=== PATIENT | female | born 1955 | race Hispanic/Latino ===

== ENCOUNTER → 2021-09-08 | Outpatient (CLI) | payer OTHER | END | disposition home or self-care (01) | LOC: RAH 07:53 | PROVIDERS: ATTEND Family Medicine | DX: Z12.31 Encounter for screening mammogram for malignant neoplasm of breast (principal) | CPT/HCPCS: 77067 ==

== ENCOUNTER → 2021-09-18 | Outpatient (CLI) | payer OTHER | END | disposition home or self-care (01) | LOC: RAH 08:23 | PROVIDERS: ATTEND Family Medicine | DX: N63.11 Unspecified lump in the right breast, upper outer quadrant (principal); R92.8 Other abnormal and inconclusive findings on diagnostic imaging of breast | CPT/HCPCS: 76641; 77065 ==

== ENCOUNTER 2022-04-05 08:20 | Emergency (ER) | payer OTHER ==
[~2022-04-05] VITALS: Ht 157.5 cm; Wt 83.5 kg
[~2022-04-05 08:20] MED LIST: ASPI-1005 PO; ATOR40TA69 PO; CLON0.1T2 PO; HYDR12.54 PO; LOSA100T58 PO; METF-444 PO; METO25TA3 PO; TICA90TA PO
[2022-04-05 09:56] VITALS: BP 120/59
[2022-04-05] MEDS ORDERED: NAPR-1196 PO (10:58)
== END 2022-04-05 12:01 | disposition home or self-care (01) ==
LOC: EDH 08:20
DX: S86.912A Strain of unspecified muscle(s) and tendon(s) at lower leg level, left leg, initial encounter (principal); M94.0 Chondrocostal junction syndrome [Tietze]; E11.9 Type 2 diabetes mellitus without complications; I10 Essential (primary) hypertension; I25.2 Old myocardial infarction; Z86.73 Personal history of transient ischemic attack (TIA), and cerebral infarction without residual deficits; W19.XXXA Unspecified fall, initial encounter; Y93.89 Activity, other specified; Y92.89 Other specified places as the place of occurrence of the external cause; Y99.8 Other external cause status
CPT/HCPCS: 71101; 73562; 93005

== ENCOUNTER 2023-07-22 15:06 | Emergency (ER) | payer OTHER ==
[~2023-07-22] VITALS: Ht 152.4 cm; Wt 83.9 kg
[~2023-07-22 15:06] MED LIST changes: -LOSA100T58 PO; +LOSA100T59 PO; +NAPR-1196 PO
[2023-07-22 18:35] LABS: BASOPHILS # (AUTO) 0.03 K/uL (0.00-0.20); BASOPHILS % (AUTO) 0.4 % (0.0-5.0); EOSINOPHILS # (AUTO) 0.14 K/uL (0.00-0.70); EOSINOPHILS % (AUTO) 1.9 % (0.0-8.0); HEMATOCRIT 39.5 % (36-48); IMMATURE GRANULOCYTE ABSOLUTE 0.02 K/uL (0-1); LYMPHOCYTES # (AUTO) 1.8 K/uL (1.0-4.8); LYMPHOCYTES % (AUTO) 24.7 % (21.0-51.0); MEAN CORPUSCULAR HEMOGLOBIN 29.7 pg (27.0-33.0); MEAN CORPUSCULAR HGB CONC 33.2 g/dL (32.0-36.0); MEAN CORPUSCULAR VOLUME 89.6 fL (79-99); MONOCYTES # (AUTO) 0.6 K/uL (0.1-1.0); MONOCYTES % (AUTO) 7.7 % (3.0-13.0); NEUTROPHILS # (AUTO) 4.8 K/uL (1.8-7.7); PLATELET COUNT (AUTO) 158 K/uL (130-400); RED BLOOD CELL COUNT(AUTO) 4.41 MIL/uL (4.00-5.50); RED CELL DISTRIBUTION WIDTH 13.8 % (11.0-15.5); WHITE BLOOD COUNT (AUTO) 7.4 K/uL (4.8-10.8)
[2023-07-22 18:48] LABS: CREATININE 1.3 mg/dL (0.5-1.0); POTASSIUM 4.6 mmol/L (3.5-5.1)
[2023-07-22 18:53] LABS: ALBUMIN 3.6 g/dL (3.5-5.0); BILIRUBIN,TOTAL 0.4 mg/dL (0.2-1.0); TOTAL PROTEIN, SERUM 7.9 g/dL (6.0-8.3)
[2023-07-22] MEDS ORDERED: CYCL-309 PO (19:20)
[2023-07-22 19:37] VITALS: BP 148/71; PULSE 65; RESP 16; O2SAT 100
== END 2023-07-22 19:41 | disposition home or self-care (01) ==
LOC: EDH 15:06
DX: R25.2 Cramp and spasm (principal); I83.92 Asymptomatic varicose veins of left lower extremity; I25.10 Atherosclerotic heart disease of native coronary artery without angina pectoris; E11.9 Type 2 diabetes mellitus without complications; E78.00 Pure hypercholesterolemia, unspecified; I10 Essential (primary) hypertension; Z79.02 Long term (current) use of antithrombotics/antiplatelets; Z79.82 Long term (current) use of aspirin; Z79.84 Long term (current) use of oral hypoglycemic drugs; Z79.899 Other long term (current) drug therapy; Z95.5 Presence of coronary angioplasty implant and graft
CPT/HCPCS: 36415; 80053; 85025; 93971

== ENCOUNTER → 2023-09-26 | Outpatient (CLI) | payer OTHER ==
[~2023-09-26] MED LIST changes: +CYCL-309 PO
== END | disposition home or self-care (01) ==
LOC: RAH 09:51
PROVIDERS: ATTEND Family Medicine
DX: Z12.31 Encounter for screening mammogram for malignant neoplasm of breast (principal); N63.11 Unspecified lump in the right breast, upper outer quadrant; R92.30 Dense breasts, unspecified
CPT/HCPCS: 77067

== ENCOUNTER 2024-07-08 13:01 | Emergency (ER) | payer OTHER ==
[~2024-07-08] VITALS: Ht 154.9 cm
--- NOTE | 2024-07-08 13:34 | ERN ---
ED Note History of Present Illness Stated Complaint: PAIN ON RIGHT ARM Chief Complaint: Shoulder Injury/Pain Time Seen by MD: 13:02 Dictation: PATIENT IS A 68-YEAR-OLD FEMALE WITH NON TRAUMA RIGHT SHOULDER PAIN THAT RADIATES DOWN HER ARM ONSET WAS TWO DAYS PRIOR TO ARRIVAL. SHE STATES SHE HAS BEEN WORKING EXCESSIVELY WITH THE SHOULDER AND HAS HAD THIS PAIN SIMILAR IN THE PAST. SHE STATES SHE HAD IT THE SAME PLACE DURING , WAS SEEN BY HER DOCTOR AND TOLD IT WAS BECAUSE OF REPETITIVE MOTION. SHE DENIES ANY TRAUMA OR FALLS. Allergies: Coded Allergies: No Known Drug Allergies (Unverified Allergy, Unknown, 01/21/22) Home Meds Active Scripts Omeprazole (Omeprazole) 40 Mg Capsule.dr, 1 CAP PO DAILY for 30 Days, #30 CAP 0 Refills Prov:LIZETT PENNINGTON NP 07/08/24 Ibuprofen (Ibuprofen 800 mg Tab) 800 Mg Tab, 800 MG PO Q8H PRN for fever or pain, #30 TAB 0 Refills Prov:LIZETT PENNINGTON NP 07/08/24 Prednisone (Prednisone) 20 Mg Tablet, 1 TAB PO AD for 6 Days, #14 TAB 0 Refills TAKE 1 TAB BY MOUTH THREE TIMES PER DAY X3 DAYS, THEN TAKE 1 TAB BY MOUTH TWICE A DAY X2 DAYS, THEN TAKE 1 TAB BY MOUTH ONCE A DAY X1 DAY. Take with food Prov:LIZETT PENNINGTON NP 07/08/24 Cyclobenzaprine HCl (Cyclobenzaprine HCl) 10 Mg Tablet, 10 MG PO TIDP for LEG CRAMPS, #30 TAB Prov:LIZETT PENNINGTON NP 07/22/23 Naproxen (Naproxen) 250 Mg Tablet, 250 MG PO BID for 7 Days, #14 TAB Prov:NARAYAN BLANCO MD 04/05/22 Hydrochlorothiazide (Hydrochlorothiazide) 12.5 Mg Tablet, 12.5 MG PO DAILY for 30 Days, #30 TAB Prov:LEISA RUIZ 01/23/22 Ticagrelor (Brilinta) 90 Mg Tablet, 90 MG PO BID for 30 Days, #60 TAB 0 Refills Prov:LEISA RUIZ 01/23/22 Metoprolol Succinate (Toprol Xl) 25 Mg Tab.er.24h, 25 MG PO DAILY for 30 Days, #30 TAB 0 Refills Prov:LEISA RUIZ 01/23/22 Clonidine HCl (Catapress) 0.1 Mg Tab, 0.1 MG PO Q6H PRN for IF SBP GREATER THAN 160 for 10 Days, #30 TAB 0 Refills Prov:LEISA RUIZ 01/23/22 Aspirin (ASPIRIN 81MG CHEW TAB) 81 Mg Tab.chew, 81 MG PO DAILY for 30 Days, #30 TAB.CHEW 0 Refills Prov:LEISA RUIZ 01/23/22 Atorvastatin Calcium (LIPITOR) 40 Mg Tablet, 40 MG PO HS for 30 Days, #30 TAB 0 Refills Prov:LEISA RUIZ 01/23/22 Reported Medications Metformin HCl (Metformin HCl) 500 Mg Tablet, 500 MG PO BID for DIABETES, TAB 01/22/22 Losartan Potassium (Losartan Potassium) 100 Mg Tablet, 100 MG PO DAILY for HYPERTENSION, TAB 01/22/22 Past Medical History Past Medical History: CAD, Diabetes-Type II, High Cholesterol, Hypertension, [place] Additional Past Medical Hx: LEFT ARM FRACTURE Surgical History: Other Surgical History Other: HEART STENTS BY DR RICE 01/22/22 History: Not Applicable RN Note Reviewed/Agreed w/PFSH: Yes Review of System Dictation CONSTITUTIONAL: NEGATIVE EXCEPT FOR HPI HEAD/FACE: NEGATIVE EXCEPT FOR HPI EENT: NEGATIVE EXCEPT FOR HPI RESPIRATORY: NEGATIVE EXCEPT FOR HPI GASTROINTESTINAL/ABDOMINAL: NEGATIVE EXCEPT FOR HPI GENITOURINARY: NEGATIVE EXCEPT FOR HPI MUSCULOSKELETAL: NEGATIVE EXCEPT FOR HPI RIGHT SHOULDER PAIN DECREASED ROM INTEGUMENTARY: NEGATIVE EXCEPT FOR HPI NEUROLOGICAL/PSYCH: NEGATIVE EXCEPT FOR HPI HEMATOLOGIC/LYMPHATIC: NEGATIVE EXCEPT FOR HPI ALL SYSTEMS NEGATIVE, EXCEPT NOTED ABOVE. 13 POINT REVIEW OF SYSTEMS ASSESSED AND ALL NEGATIVE EXCEPT FOR ABOVE. Initial Vital Sign VS Vital Signs Date Time Temp Pulse Resp B/P (MAP) Pulse Ox O2 Delivery O2 Flow Rate FiO2 07/08/24 13:32 97.5 65 18 150/64 100 Room Air 0 07/08/24 14:38 21 Physical Exam Dictation VITAL SIGNS REVIEWED GENERAL APPEARANCE: ALERT, ORIENTED X 3, MONITOR ACUTE DISTRESS, WELL DEVELOPED, NOURISHED. HEAD AND FACE: NON-TRAUMATIC. EYES: PERRL, PINK CONJUNCTIVAS, EYELID NO TRAUMA, ANTERIOR CHAMBER WITH ARCUS SENILIS. EARS: PINNAS INTACT AND NO SIGNS OF TRAUMA OR ERYTHEMA EAR CANALS CLEAR AND NO DISCHARGE TM NO ERYTHEMA NOSE: NO DISCHARGE, NO BLEEDING. OROPHARYNX: MOUTH NORMAL, TONGUE PINK, PHARYNX CLEAR,NO ERYTHEMA, TONSILS NO EXUDATES, NO ABSCESSES NOTED, MUCOUS MEMBRANE MOIST NECK: SUPPLE, NON-TENDER, NO THYROMEGALY, NO MASSES, NO JVD, NO BRUITS BREAST:DEFERRED CHEST:NO TENDERNESS, NO CREPITUS, NO PARADOXICAL MOVEMENT, NO RETRACTIONS LUNGS:CLEAR, WELL-VENTILATED, SYMMETRIC, NO RALES, NO WHEEZING, NO RHONCHI, NO STRIDOR, GOOD BREATH SOUNDS BILATERALLY HEART: REGULAR RATE, REGULAR RHYTHM, NO MURMUR, NO GALLOPS VASCULAR: NO PERIPHERAL EDEMA, ABDOMEN: SOFT, POSITIVE BOWEL SOUNDS, NONDISTENDED, NO GUARDING, NONTENDER, NO REBOUND, NO MASSES NO HEPATOMEGALY, NO SPLENOMEGALY, NO HERRERA'S SIGN, NO HERNIAS. RECTAL: DEFERRED GENITAL: DEFERRED NEUROLOGICAL: NORMAL SPEECH, MOTOR FUNCTION INTACT, SENSORY FUNCTION INTACT MUSCULOSKELETAL DIFFUSE RIGHT SHOULDER TENDERNESS MORE ANTERIOR, DECREASED ROM SECONDARY TO PAIN. DISTAL NEUROVASCULAR CMS INTACT SKIN: COLOR PINK, DRY, NO TURGOR, NO RASH, NO LACERATIONS, NO ABRASIONS, NO CONTUSIONS. LYMPHATIC: DEFERRED Results (Laboratory/Radiology) Laboratory/Radiology Comparison: None FINDINGS: The acromioclavicular joint shows hypertrophy, which may impinge upon the rotator cuff tendon. The glenohumeral joint is preserved. Visualized portions of the humerus, the scapula, and the clavicle as well as the upper ribcage are unremarkable. No pulmonary pathology is noted in the visualized portions of the upper lobe. The soft tissues are preserved. There are no other gross abnormalities. IMPRESSION: Degenerative changes of the acromioclavicular joint with hypertrophy. Labs Reviewed?: Yes ED Course ED Course Orders Procedure Category Date Status Time Ketorolac 60mg/2ml PHA 07/08/24 Complete (Toradol 60mg/2ml) 14:00 Dexamethasone 4mg/Ml PHA 07/08/24 Complete 1ml Vial (Dexametha 14:00 Shoulder Comp 2+Vws Rt RAD 07/08/24 Resulted 13:31 Cyclobenzaprine Hcl PHA 07/08/24 Complete (Cyclobenzaprine Hcl 14:00 Current Medications Medications (Trade) Dose Ordered Sig/Nirav Route PRN Reason Start Time Stop Time Status Last Admin Dose Admin Cyclobenzaprine HCl (Cyclobenzaprine HCl) 10 mg ONCE ONCE PO 07/08/24 14:00 07/08/24 14:01 DC 07/08/24 14:31 Dexamethasone Sodium Phosphate (dexaMETHasone 4MG/ML 1ML VIAL) 8 mg ONCE ONCE IM 07/08/24 14:00 07/08/24 14:01 DC 07/08/24 14:32 Ketorolac Tromethamine (toRADol 60MG/ 2ML) 60 mg ONCE ONCE IM 07/08/24 14:00 07/08/24 14:01 DC 07/08/24 14:32 Vital Signs Date Time Temp Pulse Resp B/P (MAP) Pulse Ox O2 Delivery O2 Flow Rate FiO2 07/08/24 15:22 98.1 72 20 132/48 98 Room Air* 0 21 07/08/24 14:38 98.4 74 20 131/44 98 Room Air* 0 21 07/08/24 13:32 97.5 65 18 150/64 100 Room Air 0 1532/patient states pain improved after treatment with ketorolac and Decadron. Discharged home with prednisone Told no work until cleared by her doctor or orthopedic surgeon. Medical Decision Making MDM Medical decision-making based on empiric treatment for acute shoulder pain. X-ray demonstrates degenerative changes consistent with osteoarthritis Discharged home with prednisone Told to see her primary care doctor Tuesday or Tuesday without fail for follow up and manage Or follow up with Dr. Lara Alvarez in the next 1-2 days. DX & DISP Disposition: Discharge Departure Impression: Primary Impression: Acute pain of right shoulder Additional Impression: DJD of right shoulder Condition: Stable Scripts Omeprazole (Omeprazole) 40 Mg Capsule.dr 1 CAP PO DAILY for 30 Days, #30 CAP 0 Refills Prov: LIZETT PENNINGTON NP 07/08/24 Ibuprofen (Ibuprofen 800 mg Tab) 800 Mg Tab 800 MG PO Q8H PRN for fever or pain, #30 TAB 0 Refills Prov: LIZETT PENNINGTON NP 07/08/24 Prednisone (Prednisone) 20 Mg Tablet 1 TAB PO AD for 6 Days, #14 TAB 0 Refills TAKE 1 TAB BY MOUTH THREE TIMES PER DAY X3 DAYS, THEN TAKE 1 TAB BY MOUTH TWICE A DAY X2 DAYS, THEN TAKE 1 TAB BY MOUTH ONCE A DAY X1 DAY. Take with food Prov: LIZETT PENNINGTON NP 07/08/24 Referrals: LARA SAXENA MD (PCP) LARA ALVAREZ MD Time of Disposition: 15:33 I have reviewed the case, and I agree with, Diagnosis and Plan I performed the substantive portion of the visit. I have reviewed and personally made and approve the management plan that is documented in the notes by myself or the ANA. I acknowledge full responsibility for the patient's management plan. LIZETT PENNINGTON NP Jul 08, 2024 13:34 ARNOLD SOSA MD Jul 08, 2024 19:18
[2024-07-08] MEDS: CYCLOBENZAPRINE HCL 10 MG TABLET PO ONE (14:31)
[2024-07-08] MEDS: dexaMETHasone SOD PHOSPHATE 4 MG/ML 1ML VIAL IM ONE (14:32)
[2024-07-08] MEDS: ketOROlac 60 MG VIAL (30MG/ML) IM ONE (14:32)
--- NOTE | 2024-07-08 14:42 | HMCIMG ---
Exam Type: SHOULDER COMP 2+VWS RT Clinical Information: NON TRAUMA RIGHT ANTERIOR SHOULDER PAIN THREE DAYS Comparison: None FINDINGS: The acromioclavicular joint shows hypertrophy, which may impinge upon the rotator cuff tendon. The glenohumeral joint is preserved. Visualized portions of the humerus, the scapula, and the clavicle as well as the upper ribcage are unremarkable. No pulmonary pathology is noted in the visualized portions of the upper lobe. The soft tissues are preserved. There are no other gross abnormalities. IMPRESSION: Degenerative changes of the acromioclavicular joint with hypertrophy.
[2024-07-08 15:22] VITALS: BP 132/48; PULSE 72; RESP 20; TEMP 98; O2SAT 98
[2024-07-08] MEDS ORDERED: IBUP-2077 PO (15:35)
[2024-07-08] MEDS ORDERED: PRED20TA3 PO (15:35)
[2024-07-08] MEDS ORDERED: OMEP40CA21 PO (15:35)
== END 2024-07-08 15:41 | disposition home or self-care (01) ==
LOC: EDH 13:01
DX: M25.511 Pain in right shoulder (principal); M19.011 Primary osteoarthritis, right shoulder; E11.9 Type 2 diabetes mellitus without complications; E78.00 Pure hypercholesterolemia, unspecified; I10 Essential (primary) hypertension; I25.10 Atherosclerotic heart disease of native coronary artery without angina pectoris; Z79.02 Long term (current) use of antithrombotics/antiplatelets; Z79.82 Long term (current) use of aspirin; Z79.84 Long term (current) use of oral hypoglycemic drugs; Z79.899 Other long term (current) drug therapy; Z95.5 Presence of coronary angioplasty implant and graft
CPT/HCPCS: 99284; 73030; 96372 ×2; J1100; J1885

== ENCOUNTER → 2024-07-19 | Outpatient (CLI) | payer OTHER ==
[~2024-07-19] MED LIST changes: +IBUP-2077 PO; +OMEP40CA21 PO; +PRED20TA3 PO
--- NOTE | 2024-07-19 12:23 | HMCIMG ---
US CAROTID DUPLEX HISTORY: Carotid bruit COMPARISON: None TECHNIQUE: Duplex carotid arterial Doppler ultrasound study was performed. FINDINGS: The common, internal and external carotid arteries are visualized. The peak systolic velocities of right common carotid artery is 174 centimeters per second, right internal carotid artery is 89 centimeters per second, right external carotid artery is 108 centimeters per second, and right vertebral artery is 88 centimeters per second, right subclavian artery is 158.7 cm/s.. Right internal carotid artery to right common carotid artery ratio is 0.5. Right vertebral artery is seen with antegrade flow. The peak systolic velocities of left common carotid artery is 124 centimeters per second, left internal carotid artery is 111 centimeters per second, left external carotid artery is 98 centimeters per second, and left vertebral artery is 55 centimeters per second. Left internal carotid artery to left common carotid artery ratio is 0.8. Left vertebral artery is seen with antegrade flow. There are bilateral echogenic plaques. IMPRESSION: 1. No hemodynamically significant lesion is seen of either extracranial carotid artery system.
== END | disposition home or self-care (01) ==
LOC: RAH 10:21
PROVIDERS: ATTEND Family Medicine
DX: R09.89 Other specified symptoms and signs involving the circulatory and respiratory systems (principal)
CPT/HCPCS: 93880

== ENCOUNTER → 2024-09-27 | Outpatient (CLI) | payer OTHER ==
--- NOTE | 2024-09-28 10:24 | HMCIMG ---
MAMMO SCREENING BILATERAL HISTORY: Screening mammogram. COMPARISON: 09/26/2023 TECHNIQUE: Bilateral screening mammogram with CAD was performed with craniocaudal and mediolateral oblique projections. FINDINGS: There are scattered areas of fibroglandular density. Nodular density is seen in the upper outer quadrant of the right breast. This is unchanged. There is no evidence of a dominant mass, or suspicious microcalcification. There is no evidence of nipple retraction or skin thickening. IMPRESSION: 1. Stable mammogram. Patient was entered into a reminder system with a target due date for their next mammogram. BI-RADS: CATEGORY 2: BENIGN FINDINGS Recommend monthly self breast exam as well as annual clinical examination. A negative x-ray should not delay biopsy if a dominant or clinically suspicious mass is present, since 8-10% of cancers are not identified by mammography. Dense breasts particularly, may obscure an underlying neoplasm. Some of these may be detected clinically and therefore, clinical examination is an essential part of breast evaluation.
== END | disposition home or self-care (01) ==
LOC: RAH 10:08
PROVIDERS: ATTEND Family Medicine
DX: Z12.31 Encounter for screening mammogram for malignant neoplasm of breast (principal); R92.323 Mammographic fibroglandular density, bilateral breasts
CPT/HCPCS: 77067

== ENCOUNTER 2024-10-04 12:07 | Emergency (ER) | payer OTHER ==
[~2024-10-04] VITALS: Ht 154.9 cm; Wt 81.6 kg
--- NOTE | 2024-10-04 12:41 | EKG ---
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
--- NOTE | 2024-10-04 13:35 | ERN ---
ED Note History of Present Illness Stated Complaint: FALL Chief Complaint: Mechanical Fall Time Seen by MD: 12:09 Time Seen by Midlevel: 12:11 Dictation: 69-year-old female with a history of hypertension coming in with complaints of bilateral knee pain but more so on the right and chest wall pain onset one week ago. Patient states she tripped on a firstly wax floor landing on her knees and then hit her chest on the floor. Patient states pain is worse when she takes a deep breath. Allergies: Coded Allergies: No Known Drug Allergies (Unverified Allergy, Unknown, 01/21/22) Home Meds Active Scripts Omeprazole (Omeprazole) 40 Mg Capsule.dr, 1 CAP PO DAILY for 30 Days, #30 CAP 0 Refills Prov:LIZETT PENNINGTON NP 07/08/24 Ibuprofen (Ibuprofen 800 mg Tab) 800 Mg Tab, 800 MG PO Q8H PRN for fever or pain, #30 TAB 0 Refills Prov:LIZETT PENNINGTON NP 07/08/24 Prednisone (Prednisone) 20 Mg Tablet, 1 TAB PO AD for 6 Days, #14 TAB 0 Refills TAKE 1 TAB BY MOUTH THREE TIMES PER DAY X3 DAYS, THEN TAKE 1 TAB BY MOUTH TWICE A DAY X2 DAYS, THEN TAKE 1 TAB BY MOUTH ONCE A DAY X1 DAY. Take with food Prov:LIZETT PENNINGTON NP 07/08/24 Cyclobenzaprine HCl (Cyclobenzaprine HCl) 10 Mg Tablet, 10 MG PO TIDP for LEG CRAMPS, #30 TAB Prov:LIZETT PENNINGTON NP 07/22/23 Naproxen (Naproxen) 250 Mg Tablet, 250 MG PO BID for 7 Days, #14 TAB Prov:NARAYAN BLANCO MD 04/05/22 Hydrochlorothiazide (Hydrochlorothiazide) 12.5 Mg Tablet, 12.5 MG PO DAILY for 30 Days, #30 TAB Prov:LEISA RUIZ NP 01/23/22 Ticagrelor (Brilinta) 90 Mg Tablet, 90 MG PO BID for 30 Days, #60 TAB 0 Refills Prov:LEISA RUIZ [employer] CLE[employer] 01/23/22 Metoprolol Succinate (Toprol Xl) 25 Mg Tab.er.24h, 25 MG PO DAILY for 30 Days, #30 TAB 0 Refills Prov:LEISA RUIZ [employer] 01/23/22 Clonidine HCl (Catapress) 0.1 Mg Tab, 0.1 MG PO Q6H PRN for IF SBP GREATER THAN 160 for 10 Days, #30 TAB 0 Refills Prov:LEISA RUIZ [employer] CLE[employer] 01/23/22 Aspirin (ASPIRIN 81MG CHEW TAB) 81 Mg Tab.chew, 81 MG PO DAILY for 30 Days, #30 TAB.CHEW 0 Refills Prov:LEISA RUIZ [employer] 01/23/22 Atorvastatin Calcium (LIPITOR) 40 Mg Tablet, 40 MG PO HS for 30 Days, #30 TAB 0 Refills Prov:LEISA RUIZ R[employer]ER 01/23/22 Reported Medications Metformin HCl (Metformin HCl) 500 Mg Tablet, 500 MG PO BID for DIABETES, TAB 01/22/22 Losartan Potassium (Losartan Potassium) 100 Mg Tablet, 100 MG PO DAILY for HYPERTENSION, TAB 01/22/22 Past Medical History Past Medical History: Hypertension Additional Past Medical Hx: LEFT ARM FRACTURE Surgical History: Other Surgical History Other: L ARM SX History: Not Applicable Review of System Dictation Constitutional: Negative for fever,chills, and weight loss Eyes: Negative for injury, pain,redness, and discharge ENT: Negative for injury,pain or swelling Cardiovascular: Negative for chest pain, palpitations, and edema complaining of chest wall pain Respiratory: Negative for shortness of breath, cough, and wheezing, Abdomen/GI: Negative for abdominal pain, nausea, vomiting, diarrhea, and constipation Back: Negative for injury and pain : Negative for injury, bleeding and discharge MS/Extremity: Negative for injury and deformity, complaining of right knee pain Skin: Negative for rash, and discoloration Neuro: Negative for headache, weakness, numbness, tingling, and seizure Psych: Negative for suicide ideation, homicidal ideation, and hallucinations Review of Systems: was completed Initial Vital Sign VS Vital Signs Date Time Temp Pulse Resp B/P (MAP) Pulse Ox O2 Delivery O2 Flow Rate FiO2 10/04/24 12:08 98.4 60 16 173/79 98 Room Air 0 Physical Exam Dictation General: awake, alert, NAD Head/Face: Normocephalic, atraumatic Eyes: PERRL, EOMI, vision at baseline ENT: oral cavity clear, TMs clear, no signs of infection Neck: Trachea midline, supple, no nuchal rigidity Cardiovascular: RRR, normal S1/S2, No MRGs, no JVD, reciprocal chest pain on palpation to the chest wall, no obvious deformities or abrasions or flail chest Respiratory: CTAB, no respiratory distress, No rales or wheezes Abdomen: Soft, non-tender, non-distended, normal bowel sounds, no guarding or rebound. Skin: Warm, dry, normal turgor, no rash, bilateral knee ecchymosis MS/Extremity: Pulses equal, no cyanosis, neurovascular intact, FROM Neuro: COAx4, GCS 15, strength 5/5, CN 2-12 intact, normal cerebellar exam, normal gait, Psych: Normal behavior, mood, and affect normal Results (Laboratory/Radiology) Labs Reviewed?: Yes EKG Comment: EKGs done at 12:38 p.m.. Sinus rhythm at a rate of 56. No STEMI interpreted by ER MD ED Course ED Course Orders Procedure Category Date Status Time Knee 3vws Rt RAD 10/04/24 Taken 12:20 Chest 1vw RAD 10/04/24 Taken 12:20 Ketorolac PHA 10/04/24 Complete Tromethamine 15mg/Ml 12:20 Acetaminophen 325 Tab PHA 10/04/24 Complete (Tylenol 325mg Tab 12:20 12 Lead Ekg Tracing- EKG 10/04/24 Complete Technical 12:23 Current Medications Medications (Trade) Dose Ordered Sig/Nirav Route PRN Reason Start Time Stop Time Status Last Admin Dose Admin Acetaminophen (TYLenol 325MG TAB) 650 mg ONCE STAT PO 10/04/24 12:20 10/04/24 12:24 DC 10/04/24 12:47 Ketorolac Tromethamine (toRADol) 15 mg ONCE STAT IM 10/04/24 12:20 10/04/24 12:24 DC 10/04/24 12:46 Vital Signs Date Time Temp Pulse Resp B/P (MAP) Pulse Ox O2 Delivery O2 Flow Rate FiO2 10/04/24 12:08 98.4 60 16 173/79 98 Room Air 0 Medical Decision Making MDM MDM: 69-year-old female with a history of hypertension coming in with complaints of bilateral knee pain but more so on the right and chest wall pain onset one week ago. Patient states she tripped on a firstly wax floor landing on her knees and then hit her chest on the floor. Patient states pain is worse when s he takes a deep breath. X-rays preliminary report interpreted by me show no acute finding to the knee x-ray no acute finding to the chest. Educated patient to follow up with her PCP in 1-2 days. Return to the hospital if anything worsens. Also EKGs was not to rule out any cardiac etiology. EKGs shows sinus rhythm at a rate of 56. No STEMI. Differential diagnosis: Knee contusion, mechanical fall, rib fracture, Rationale: Tests considered and ordered secondary to shared decision making include: Previous outside records reviewed: Old ER visits. Risk of complication and/or morbidity or mortality of patient management: None Medications-Per medication reconciliation Need for hospitalization: Patient does not meet criteria for hospitalization. Need for emergency major/minor surgery: No There are no social concerns with this patient. Prescription drug management Prescriptions will include symptomatic care Patient's prior external medical records from other ER visits were reviewed by me as indicated. Prior testing and results from previous visits were reviewed. Prior tests were taken into account with medical decision making and resource utilization, independent historian/historians were used to obtain complete medical history. I independently interpreted the test that were performed, results were reviewed by me and considered findings on radiology if ordered. Medical management and examination interpretation discussions were had by me with other qualified healthcare professionals as indicated for the patient's care. DX & DISP Disposition: Discharge Departure Impression: Primary Impression: Chest wall pain Condition: Stable Additional Instructions: Please follow up with your primary doctor in 1-2 days. Return to the hospital as needed. Take [id number] pain medication. Referrals: MINDA LOPEZ MD (PCP) Time of Disposition: 13:34 MICHELE ELDER NP Oct 04, 2024 13:35
--- NOTE | 2024-10-04 13:44 | HMCIMG ---
EXAM: CR Chest, 1 View. CLINICAL HISTORY: fall COMPARISON: None provided. FINDINGS: LUNGS: There is no mass, infiltrate, or acute pulmonary abnormality. PLEURAL SPACES: No pleural effusion or pneumothorax. MEDIASTINUM: Cardiac size and mediastinal contours within normal limits. BONES: No aggressive appearing osseous lesion seen. IMPRESSION: No acute cardiopulmonary pathology is evident. /[place]
--- NOTE | 2024-10-04 13:48 | HMCIMG ---
EXAM: CR right Knee, 3 View. CLINICAL HISTORY: fall COMPARISON: None provided. FINDINGS: Patellofemoral compartment predominant moderate to severe tricompartmental knee joint osteoarthritis. Chondrocalcinosis of the bilateral menisci. Small knee joint effusion. No displaced fracture appreciated. IMPRESSION: 1. No acute osseous injury. 2. Moderate to severe tricompartmental knee osteoarthritis, predominantly patellofemoral, with small joint effusion and chondrocalcinosis. /[place]
[2024-10-04 14:28] VITALS: BP 133/60; PULSE 80; RESP 18; TEMP 98; O2SAT 99
== END 2024-10-04 14:32 | disposition home or self-care (01) ==
LOC: EDH 12:07
DX: R07.89 Other chest pain (principal); I10 Essential (primary) hypertension; Z79.02 Long term (current) use of antithrombotics/antiplatelets; Z79.82 Long term (current) use of aspirin; Z79.84 Long term (current) use of oral hypoglycemic drugs; Z79.899 Other long term (current) drug therapy
CPT/HCPCS: 99284; 71045; 73562; 96372; 93005; J1885